=== PATIENT | male | born 1970 | race Two or more races ===

== ENCOUNTER → 2025-05-09 | Outpatient (CLI) | payer MEDICAID, SELFPAY ==
--- NOTE | 2025-05-09 09:15 | XR_ITS ---
Examination: Abdomen sonogram, complete Date and time of exam: May 09, 2025, 0903 hours INDICATIONS: Left upper abdominal pain beginning 4 months ago. Technique: Multiple real-time grayscale transabdominal sonographic images of the abdomen have been obtained. Findings: Absent gallbladder Normal common bile duct 0.4 cm Pancreatic head 3.0 cm Aorta not enlarged. Liver 13.5 cm no focal liver lesions Normal hepatopetal portal venous flow Patent IVC Right kidney 9.3 cm renal cortex 1.4 cm Left kidney 9.6 cm renal cortex 2.1 cm Moderate renal scar formation Spleen 9.1 cm IMPRESSION: Liver normal size. Moderate renal scar formation, no hydronephrosis
== END | disposition home or self-care (01) ==
LOC: CDIM 08:41
DX: N28.89 Other specified disorders of kidney and ureter (principal)
CPT/HCPCS: 76700